=== PATIENT | female | born 1995 | race African-American/Black ===

== ENCOUNTER 2020-09-02 12:16 | Inpatient (IN) ==
[2020-09-02] MEDS ORDERED: KETOROLAC 30 MG/1 ML VIAL IV STA (14:04)
[2020-09-02 14:10] LABS: Basophils % 0.2 % (0.0-0.8); Hematocrit 45.3 VOL% (35.7-47.0); Immature Granulocytes % 0.7 %; Immature Granulocytes Absolute 0.11 #; Lymphocytes # 1.1 10*3/uL (1.4-4.0); Lymphocytes % 6.7 % (21.3-54.2); Mean Corpuscular HGB Conc 35.3 GM/DL (32-36); Mean Corpuscular Volume 84.5 FL (87-102); Mean Platelet Volume 11.5 FL (9.6-12.0); Monocytes % 9.9 % (1.7-12.7); Neutrophils % 82.5 % (38.7-73.9); Platelet Count 247 T/CUMM (130-400); Red Blood Count 5.36 MC/CUMM (3.8-5.5); Red Cell Distribution Width 12.4 % (9.3-17.3); White Blood Count 16.7 T/CUMM (4-12)
[2020-09-02 14:32] LABS: Uric Acid 6.4 MG/DL (2.6-6.0)
[2020-09-02 15:11] LABS: Sedimentation Rate-Westergren 15 MM/HR (0-20)
[2020-09-02 15:32] LABS: Albumin 3.4 G/DL (3.4-5.0); Bilirubin,Total 0.5 MG/DL (0.2-1.0); Calcium 9.3 MG/DL (8.5-10.1); Osmolality,Calculated 276.4 MOS/KG (273-304); Potassium 4.4 MMOL/L (3.5-5.1)
[2020-09-02] MEDS ORDERED: GLUCAGON 1 MG VIAL IM PRN (15:45)
[2020-09-02] MEDS ORDERED: DEXTROSE 50% 25 GM/50 ML VIAL IV PRN ×2 (15:45→15:50)
[2020-09-02] MEDS ORDERED: ONDANSETRON 4 MG/2 ML VIAL IV PRN (15:45)
[2020-09-02] MEDS ORDERED: VANCOMYCIN INJ 1,250 MG in SODIUM CHLORIDE 0.9% 250 ML IV SCH (16:00)
[2020-09-02] MEDS ORDERED: SODIUM CHLORIDE 0.9% 500 ML IV ONE (16:07)
[2020-09-02 17:19] LABS: Bilirubin,Urine Negative (Negative); Blood, Urine Negative (Negative); Glucose,Urine (UA) >=500 mg/dL (Negative); Ketones,Urine 80 mg/dL (Negative); Mucus,Urine Occasional /LPF (Occasional); Nitrite,Urine Negative (Negative); Protein,Urine Negative; RBC,Urine 1 /HPF (0-4); Squamous Epithelial Cell,Urine Occasional /HPF (0-10); Urine Appearance CLEAR (Clear); Urine Color Straw (Yellow); Urine Specific Gravity 1.012 (1.001-1.035); Urine Urobilinogen < 2.0 EU/DL (0.2-1.0)
[2020-09-02] MEDS: SODIUM CHLORIDE 0.9% 1,000 ML IV SCH (18:11)
[2020-09-02] MEDS: INSULIN REGULAR 100 UNIT/ML SUBCUT SCH ×2 (18:29→20:31)
[2020-09-02] MEDS ORDERED: ENOXAPARIN 40 MG/0.4 ML SYRINGE SUBCUT SCH (21:00)
[2020-09-02] MEDS: VANCOMYCIN INJ 1,250 MG in SODIUM CHLORIDE 0.9% 250 ML IV SCH (21:35)
[2020-09-02 22:04] LABS: Calcium 9.5 MG/DL (8.5-10.1); Osmolality,Calculated 278.8 MOS/KG (273-304); Potassium 4.6 MMOL/L (3.5-5.1)
[2020-09-03] MEDS: SODIUM CHLORIDE 0.9% 1,000 ML IV SCH ×3 (03:09→16:25)
[2020-09-03] MEDS: ACETAMINOPHEN 325 MG TABLET PO PRN (04:15)
[2020-09-03 07:15] LABS: Basophils % 0.1 % (0.0-0.8); Hematocrit 37.8 VOL% (35.7-47.0); Immature Granulocytes % 0.6 %; Lymphocytes # 1.5 10*3/uL (1.4-4.0); Lymphocytes % 9.3 % (21.3-54.2); Mean Corpuscular HGB Conc 33.9 GM/DL (32-36); Mean Corpuscular Volume 86.5 FL (87-102); Mean Platelet Volume 11.6 FL (9.6-12.0); Monocytes % 11.2 % (1.7-12.7); Neutrophils % 78.8 % (38.7-73.9); Platelet Count 231 T/CUMM (130-400); Red Blood Count 4.37 MC/CUMM (3.8-5.5); Red Cell Distribution Width 12.5 % (9.3-17.3); White Blood Count 16.3 T/CUMM (4-12)
[2020-09-03 07:17] LABS: Hemoglobin 12.8 GM/DL (12.0-16.0)
[2020-09-03 07:24] LABS: Albumin 2.5 G/DL (3.4-5.0); Bilirubin,Total 1.6 MG/DL (0.2-1.0); Calcium 8.8 MG/DL (8.5-10.1); Osmolality,Calculated 265.5 MOS/KG (273-304); Potassium 3.6 MMOL/L (3.5-5.1); Total Protein 7.4 G/DL (6.4-8.2)
[2020-09-03 07:35] LABS: Hypochromasia Slight; Microcytosis Slight; Platelet Estimate Adequate
[2020-09-03] MEDS: INSULIN REGULAR 100 UNIT/ML SUBCUT SCH ×4 (08:31→20:42)
[2020-09-03] MEDS: PANTOPRAZOLE 40 MG TABLET PO SCH (08:31)
[2020-09-03] MEDS: PIPERACILLIN/TAZOBACTAM 3,375 MG in SODIUM CHLORIDE 0.9% 100 ML IV SCH ×2 (08:59→17:27)
[2020-09-03] MEDS ORDERED: BUPIVACAINE 0.5% 50 ML VIAL ONE (10:00)
[2020-09-03 10:20] LABS: Cholesterol Crystals None Seen /LPF
[2020-09-03 10:23] LABS: Neutrophils,Synovial Fluid 100 %
[2020-09-03] MEDS ORDERED: LIDOCAINE 2% 5 ML VIAL ONE (10:45)
[2020-09-03] MEDS ORDERED: ONDANSETRON 4 MG/2 ML VIAL ONE ×2 (10:45→11:19)
[2020-09-03] MEDS ORDERED: MIDAZOLAM 2 MG/2 ML VIAL ONE (10:45)
[2020-09-03] MEDS ORDERED: DEXAMETHASONE 4 MG/1 ML VIAL ONE (10:45)
[2020-09-03] MEDS ORDERED: propofoL 200 MG/20 ML VIAL IV ONE (10:45)
[2020-09-03] MEDS ORDERED: fentaNYL 100 MCG/2 ML VIAL ONE ×2 (10:45→11:40)
[2020-09-03] MEDS ORDERED: VANCOMYCIN 1,000 MG VIAL ONE (10:53)
[2020-09-03] MEDS ORDERED: VANCOMYCIN 500 MG VIAL ONE (10:54)
[2020-09-03] MEDS ORDERED: SEVOFLURANE 1 UNIT/15 MINUTE INH ONE (11:40)
[2020-09-03] MEDS ORDERED: ONDANSETRON 4 MG/2 ML VIAL IV PRN (12:10)
[2020-09-03] MEDS: HYDROmorphone 2 MG/1 ML VIAL IV PRN ×4 (12:22→12:44)
[2020-09-03] MEDS ORDERED: DEXTROSE 50% 25 GM/50 ML VIAL IV PRN (12:30)
[2020-09-03] MEDS: VANCOMYCIN INJ 1,250 MG in SODIUM CHLORIDE 0.9% 250 ML IV SCH ×2 (13:20→21:48)
[2020-09-03] MEDS: KETOROLAC 30 MG/1 ML VIAL IV SCH ×2 (14:14→20:42)
[2020-09-03] MEDS: glyBURIDE 5 MG TABLET PO SCH (17:27)
[2020-09-03] MEDS ORDERED: ENOXAPARIN 40 MG/0.4 ML SYRINGE SUBCUT SCH (21:00)
[2020-09-04] MEDS: PIPERACILLIN/TAZOBACTAM 3,375 MG in SODIUM CHLORIDE 0.9% 100 ML IV SCH ×3 (01:29→20:26)
[2020-09-04] MEDS: HYDROmorphone 2 MG/1 ML VIAL IV PRN ×4 (01:38→21:58)
[2020-09-04] MEDS: KETOROLAC 30 MG/1 ML VIAL IV SCH ×2 (03:04→09:05)
[2020-09-04 05:23] LABS: Basophils % 0.2 % (0.0-0.8); Eosinophils % 0.2 % (0.00-10.9); Hematocrit 33.8 VOL% (35.7-47.0); Hemoglobin 11.6 GM/DL (12.0-16.0); Immature Granulocytes % 0.9 %; Immature Granulocytes Absolute 0.11 #; Lymphocytes # 1.6 10*3/uL (1.4-4.0); Lymphocytes % 12.2 % (21.3-54.2); Mean Corpuscular HGB Conc 34.3 GM/DL (32-36); Mean Platelet Volume 11.2 FL (9.6-12.0); Monocytes % 7.6 % (1.7-12.7); Neutrophils % 78.9 % (38.7-73.9); Platelet Count 221 T/CUMM (130-400); Red Blood Count 3.93 MC/CUMM (3.8-5.5); Red Cell Distribution Width 12.5 % (9.3-17.3); White Blood Count 12.9 T/CUMM (4-12)
[2020-09-04 05:43] LABS: Calcium 8.7 MG/DL (8.5-10.1); Potassium 3.6 MMOL/L (3.5-5.1)
[2020-09-04] MEDS: SODIUM CHLORIDE 0.9% 1,000 ML IV SCH (09:04)
[2020-09-04] MEDS: PANTOPRAZOLE 40 MG TABLET PO SCH (09:05)
[2020-09-04] MEDS: glyBURIDE 5 MG TABLET PO SCH ×2 (09:06→18:06)
[2020-09-04] MEDS: sitaGLIPtin 100 MG TABLET PO SCH (09:06)
[2020-09-04] MEDS: INSULIN REGULAR 100 UNIT/ML SUBCUT SCH ×4 (09:06→20:45)
[2020-09-04] MEDS: VANCOMYCIN INJ 1,250 MG in SODIUM CHLORIDE 0.9% 250 ML IV SCH ×2 (09:07→22:13)
[2020-09-04] MEDS: ENOXAPARIN 40 MG/0.4 ML SYRINGE SUBCUT SCH (09:11)
[2020-09-04] MEDS: NICOTINE 21 MG/24 HR PATCH TRANSDERM SCH (13:42)
[2020-09-04] MEDS: metFORMIN 850 MG TABLET PO SCH (17:26)
[2020-09-05] MEDS: SODIUM CHLORIDE 0.9% 1,000 ML IV SCH ×2 (00:30→05:00)
[2020-09-05] MEDS: PIPERACILLIN/TAZOBACTAM 3,375 MG in SODIUM CHLORIDE 0.9% 100 ML IV SCH ×3 (03:29→20:56)
[2020-09-05 05:46] LABS: Basophils % 0.3 % (0.0-0.8); Eosinophils % 0.4 % (0.00-10.9); Hemoglobin 11.3 GM/DL (12.0-16.0); Immature Granulocytes % 0.9 %; Lymphocytes % 19.1 % (21.3-54.2); Mean Corpuscular HGB Conc 34.2 GM/DL (32-36); Mean Corpuscular Volume 83.8 FL (87-102); Mean Platelet Volume 11.4 FL (9.6-12.0); Monocytes % 6.5 % (1.7-12.7); Neutrophils % 72.8 % (38.7-73.9); Platelet Count 251 T/CUMM (130-400); Red Blood Count 3.94 MC/CUMM (3.8-5.5); Red Cell Distribution Width 12.8 % (9.3-17.3); White Blood Count 10.6 T/CUMM (4-12)
[2020-09-05 06:28] LABS: Calcium 8.3 MG/DL (8.5-10.1); Potassium 3.5 MMOL/L (3.5-5.1)
[2020-09-05] MEDS ORDERED: GLIMEPIRIDE 2 MG TABLET PO SCH (08:00)
[2020-09-05] MEDS: metFORMIN 850 MG TABLET PO SCH (08:45)
[2020-09-05] MEDS: sitaGLIPtin 100 MG TABLET PO SCH (08:46)
[2020-09-05] MEDS: PANTOPRAZOLE 40 MG TABLET PO SCH (08:46)
[2020-09-05] MEDS: ENOXAPARIN 40 MG/0.4 ML SYRINGE SUBCUT SCH (08:46)
[2020-09-05] MEDS: INSULIN REGULAR 100 UNIT/ML SUBCUT SCH ×4 (08:47→20:57)
[2020-09-05] MEDS: HYDROmorphone 2 MG/1 ML VIAL IV PRN ×3 (08:48→20:55)
[2020-09-05] MEDS: VANCOMYCIN INJ 1,250 MG in SODIUM CHLORIDE 0.9% 250 ML IV SCH (08:54)
[2020-09-05] MEDS: NICOTINE 21 MG/24 HR PATCH TRANSDERM SCH (10:58)
[2020-09-05] MEDS: GLIMEPIRIDE 2 MG TABLET PO SCH (17:28)
[2020-09-05] MEDS: metFORMIN 500 MG TABLET PO SCH (17:29)
[2020-09-05] MEDS: DOXYCYCLINE HYCLATE 100 MG CAPSULE PO SCH (20:54)
[2020-09-06] MEDS: HYDROmorphone 2 MG/1 ML VIAL IV PRN ×5 (00:29→20:26)
[2020-09-06] MEDS: PIPERACILLIN/TAZOBACTAM 3,375 MG in SODIUM CHLORIDE 0.9% 100 ML IV SCH ×3 (04:17→20:33)
[2020-09-06 06:27] LABS: Basophils # 0.1 10*3/uL (0.0-0.2); Basophils % 0.4 % (0.0-0.8); Eosinophils % 0.3 % (0.00-10.9); Hematocrit 35.3 VOL% (35.7-47.0); Hemoglobin 12.4 GM/DL (12.0-16.0); Immature Granulocytes % 2.5 %; Immature Granulocytes Absolute 0.28 #; Lymphocytes # 2.1 10*3/uL (1.4-4.0); Lymphocytes % 18.8 % (21.3-54.2); Mean Corpuscular HGB Conc 35.1 GM/DL (32-36); Mean Corpuscular Volume 83.8 FL (87-102); Mean Platelet Volume 10.9 FL (9.6-12.0); Platelet Count 312 T/CUMM (130-400); Red Blood Count 4.21 MC/CUMM (3.8-5.5); Red Cell Distribution Width 13.1 % (9.3-17.3); White Blood Count 11.2 T/CUMM (4-12)
[2020-09-06 06:46] LABS: Osmolality,Calculated 274.1 MOS/KG (273-304); Potassium 3.4 MMOL/L (3.5-5.1)
[2020-09-06] MEDS: INSULIN REGULAR 100 UNIT/ML SUBCUT SCH ×4 (10:02→22:42)
[2020-09-06] MEDS: PANTOPRAZOLE 40 MG TABLET PO SCH (10:04)
[2020-09-06] MEDS: GLIMEPIRIDE 2 MG TABLET PO SCH ×2 (10:04→17:16)
[2020-09-06] MEDS: metFORMIN 500 MG TABLET PO SCH ×2 (10:04→17:16)
[2020-09-06] MEDS: DOXYCYCLINE HYCLATE 100 MG CAPSULE PO SCH ×2 (10:04→20:25)
[2020-09-06] MEDS: sitaGLIPtin 100 MG TABLET PO SCH (10:04)
[2020-09-06] MEDS: ENOXAPARIN 40 MG/0.4 ML SYRINGE SUBCUT SCH (10:05)
[2020-09-07] MEDS: HYDROmorphone 2 MG/1 ML VIAL IV PRN ×6 (00:24→22:09)
[2020-09-07] MEDS: PIPERACILLIN/TAZOBACTAM 3,375 MG in SODIUM CHLORIDE 0.9% 100 ML IV SCH ×2 (05:19→12:36)
[2020-09-07 06:53] LABS: Basophils % 0.4 % (0.0-0.8); Eosinophils % 0.4 % (0.00-10.9); Hematocrit 33.2 VOL% (35.7-47.0); Hemoglobin 11.2 GM/DL (12.0-16.0); Immature Granulocytes % 2.7 %; Lymphocytes # 1.7 10*3/uL (1.4-4.0); Lymphocytes % 15.3 % (21.3-54.2); Mean Corpuscular HGB Conc 33.7 GM/DL (32-36); Mean Corpuscular Volume 85.1 FL (87-102); Mean Platelet Volume 10.9 FL (9.6-12.0); Monocytes % 7.3 % (1.7-12.7); NRBC # 0.02 10*3/uL; Neutrophils % 73.9 % (38.7-73.9); Platelet Count 317 T/CUMM (130-400); Red Cell Distribution Width 13.3 % (9.3-17.3)
[2020-09-07 07:14] LABS: Calcium 9.1 MG/DL (8.5-10.1); Osmolality,Calculated 272.2 MOS/KG (273-304); Potassium 3.4 MMOL/L (3.5-5.1)
[2020-09-07] MEDS: ENOXAPARIN 40 MG/0.4 ML SYRINGE SUBCUT SCH (09:02)
[2020-09-07] MEDS: INSULIN REGULAR 100 UNIT/ML SUBCUT SCH ×4 (09:02→22:09)
[2020-09-07] MEDS: GLIMEPIRIDE 2 MG TABLET PO SCH ×2 (09:03→17:33)
[2020-09-07] MEDS: metFORMIN 500 MG TABLET PO SCH ×2 (09:03→17:33)
[2020-09-07] MEDS: PANTOPRAZOLE 40 MG TABLET PO SCH (09:03)
[2020-09-07] MEDS: DOXYCYCLINE HYCLATE 100 MG CAPSULE PO SCH (09:03)
[2020-09-07] MEDS: sitaGLIPtin 100 MG TABLET PO SCH (09:03)
[2020-09-07] MEDS: MAGNESIUM HYDROXIDE SUSP 30 ML UDCUP PO PRN (14:34)
[2020-09-07] MEDS: cefTRIAXone 1,000 MG in SODIUM CHLORIDE 0.9% 100 ML IV SCH (17:33)
[2020-09-08] MEDS: HYDROmorphone 2 MG/1 ML VIAL IV PRN ×2 (03:16→20:28)
[2020-09-08 05:26] LABS: Basophils % 0.2 % (0.0-0.8); Eosinophils # 0.1 10*3/uL (0.0-0.87); Eosinophils % 0.8 % (0.00-10.9); Hematocrit 31.9 VOL% (35.7-47.0); Hemoglobin 10.7 GM/DL (12.0-16.0); Immature Granulocytes % 3.1 %; Immature Granulocytes Absolute 0.33 #; Lymphocytes % 18.8 % (21.3-54.2); Mean Corpuscular HGB Conc 33.5 GM/DL (32-36); Mean Corpuscular Volume 86.7 FL (87-102); Mean Platelet Volume 10.5 FL (9.6-12.0); Monocytes % 10.3 % (1.7-12.7); NRBC # 0.02 10*3/uL; Neutrophils % 66.8 % (38.7-73.9); Platelet Count 351 T/CUMM (130-400); Red Blood Count 3.68 MC/CUMM (3.8-5.5); Red Cell Distribution Width 13.1 % (9.3-17.3); White Blood Count 10.5 T/CUMM (4-12)
[2020-09-08 05:52] LABS: Calcium 8.9 MG/DL (8.5-10.1); Osmolality,Calculated 271.1 MOS/KG (273-304); Potassium 3.2 MMOL/L (3.5-5.1)
[2020-09-08] MEDS: INSULIN REGULAR 100 UNIT/ML SUBCUT SCH ×4 (09:41→21:58)
[2020-09-08] MEDS: ENOXAPARIN 40 MG/0.4 ML SYRINGE SUBCUT SCH (09:41)
[2020-09-08] MEDS: sitaGLIPtin 100 MG TABLET PO SCH (09:42)
[2020-09-08] MEDS: GLIMEPIRIDE 2 MG TABLET PO SCH ×2 (09:42→17:41)
[2020-09-08] MEDS: metFORMIN 500 MG TABLET PO SCH ×2 (09:43→19:36)
[2020-09-08] MEDS: PANTOPRAZOLE 40 MG TABLET PO SCH (09:43)
[2020-09-08] MEDS: cefTRIAXone 1,000 MG in SODIUM CHLORIDE 0.9% 100 ML IV SCH (17:42)
[2020-09-09] MEDS: HYDROmorphone 2 MG/1 ML VIAL IV PRN (03:15)
[2020-09-09 06:03] LABS: Basophils % 0.2 % (0.0-0.8); Eosinophils # 0.1 10*3/uL (0.0-0.87); Eosinophils % 0.7 % (0.00-10.9); Hematocrit 32.3 VOL% (35.7-47.0); Immature Granulocytes % 2.1 %; Immature Granulocytes Absolute 0.25 #; Lymphocytes # 1.9 10*3/uL (1.4-4.0); Lymphocytes % 15.9 % (21.3-54.2); Mean Corpuscular HGB Conc 34.1 GM/DL (32-36); Mean Corpuscular Volume 85.2 FL (87-102); Mean Platelet Volume 10.6 FL (9.6-12.0); NRBC # 0.02 10*3/uL; Neutrophils % 73.1 % (38.7-73.9); Platelet Count 373 T/CUMM (130-400); Red Blood Count 3.79 MC/CUMM (3.8-5.5); Red Cell Distribution Width 13.2 % (9.3-17.3); White Blood Count 12.1 T/CUMM (4-12)
[2020-09-09 06:35] LABS: Calcium 9.2 MG/DL (8.5-10.1); Potassium 3.5 MMOL/L (3.5-5.1)
[2020-09-09] MEDS: INSULIN REGULAR 100 UNIT/ML SUBCUT SCH ×2 (08:33→12:11)
[2020-09-09] MEDS: ENOXAPARIN 40 MG/0.4 ML SYRINGE SUBCUT SCH ×2 (08:33→08:36)
[2020-09-09] MEDS: sitaGLIPtin 100 MG TABLET PO SCH (08:34)
[2020-09-09] MEDS: GLIMEPIRIDE 2 MG TABLET PO SCH (08:34)
[2020-09-09] MEDS: PANTOPRAZOLE 40 MG TABLET PO SCH (08:34)
[2020-09-09] MEDS: metFORMIN 500 MG TABLET PO SCH (08:34)
[2020-09-09] MEDS: cefTRIAXone 1,000 MG in SODIUM CHLORIDE 0.9% 100 ML IV SCH (08:39)
[2020-09-09] MEDS: ACETAMINOPHEN 325 MG TABLET PO PRN (09:53)
[2020-09-09 12:33] VITALS: BP 135/71
== END 2020-09-09 15:21 | disposition home or self-care (01) | DRG 405 ==
LOC: N.ED 12:16 → N.EDINP 12:16 → N.5E 18:05 → SUATTDRO 09-03 14:19
PROVIDERS: ADMIT Hospitalist; ATTEND Internal Medicine